=== PATIENT | female | born 1980 | race Caucasian/White ===

== ENCOUNTER 2018-02-05 23:17 | Emergency (ER) | payer BC ==
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
[2018-02-06] MEDS ORDERED: Ibuprofen 600 MG Tab PO ONE (01:55)
--- NOTE | 2018-02-07 11:26 | CT ---
Head CT Technique: Multiple axial sections through the brain were obtained. Intravenous contrast was not utilized. Comparison: No previous intracranial imaging. Findings: Soft tissue swelling is seen within the left frontal scalp. Small radiopacity projected within soft tissues of the frontal scalp measuring about 4 mm and difficult to exclude foreign body. Bone window settings show no acute calvarial abnormality. Visualized sinuses are clear. Ventricles along with basal cisterns and sulci over the convexities are within normal limits for the patient's age. Mild asymmetry in size and the lateral ventricles are seen which is felt to be normal variant. No abnormal parenchymal densities are seen. No evidence of intracranial hemorrhage. No midline shift or mass effect is seen. Impression: 1. Soft tissue swelling within the left frontal scalp. Equivocal small foreign body in the same region is seen. 2. No acute intracranial abnormality is seen. No skull fracture is seen. Diagnostic code #3 Agree with preliminary report issued by [facility], with additional note of possible foreign body ([facility] preliminary report dictated on 02/06/18, 12:56 AM Central Time)
--- NOTE | 2018-02-07 11:27 | CT ---
CT cervical spine Technique: Multiple axial sections were obtained from above C1 inferiorly to the bottom of T6. Reconstructed sagittal and coronal images were reviewed. Findings: Vertebral body heights and disc spaces are maintained. No fracture is identified. No bony central or bony neural foraminal stenosis is seen. Minimal subluxation is suggested within the apophyseal joints at C5-C6. Minimal subluxation of the vertebral body seen at C5-C6. Kyphosis is seen within the spine which is likely positional. Mild scoliosis is also noted. Impression: 1. Equivocal mild subluxation within the apophyseal joints at C5-C6. This may relate to positioning although difficult to completely exclude ligamentous injury. MRI could be considered with fat-suppressed technique to see if soft tissue injury is present. 2. CT study of the cervical spine is otherwise unremarkable. Diagnostic code #3 Agree with preliminary report issued by [facility] ([facility] ([facility] preliminary report dictated on 02/06/18, 1:15 AM Central Time)
== END 2018-02-06 10:00 | disposition home or self-care (01) ==
LOC: JD.ED 23:17
DX: S13.160A Subluxation of C5/C6 cervical vertebrae, initial encounter (principal); F17.210 Nicotine dependence, cigarettes, uncomplicated; Z88.1 Allergy status to other antibiotic agents; Y04.0XXA Assault by unarmed brawl or fight, initial encounter
CPT/HCPCS: 36415; 36600; 70450; 72125; 80053; 80306; 81025; 82803; 85007; 85027; 93005; 99285; A9270; G0480; 93010; 99284-25